=== PATIENT | male | born 1980 | race Caucasian/White ===

== ENCOUNTER 2019-07-26 12:02 | Emergency (ER) | payer SELFPAY ==
--- NOTE | 2019-07-26 12:11 | NUR ---
called for triage not in the waiting room
--- NOTE | 2019-07-26 12:16 | NUR ---
called for triage not in the waiting room
--- NOTE | 2019-07-26 12:27 | NUR ---
called for triage not in the waiting room
== END 2019-07-26 12:28 | disposition left against medical advice (07) ==
LOC: ER 12:11
DX: Z53.21 Procedure and treatment not carried out due to patient leaving prior to being seen by health care provider (principal)